=== PATIENT | male | born 1960 | race Caucasian/White ===

== ENCOUNTER 2022-03-22 14:41 | Outpatient (CLI) | payer BC, SELFPAY | END 2022-03-22 14:42 | disposition home or self-care (01) | PROVIDERS: PCP Family Medicine; Visit Provider Student in an Organized Health Care Education/Training Program | DX: I48.91 Unspecified atrial fibrillation (principal); I51.7 Cardiomegaly | CPT/HCPCS: 93306 ==

== ENCOUNTER 2022-04-09 05:09 | Observation (INO) | payer BC, SELFPAY ==
[2022-04-09] VITALS (18 sets, daily range): BP systolic 99–140; BP diastolic 69–119; PULSE 67–92; RESP 16–20; TEMP 36.6–36.9; O2SAT 88–98; BMI 28.1
--- NOTE | 2022-04-09 05:38 | CRLHL7_ITS ---
For Patients: As a result of the Century Cures Act, medical imaging exams and procedure reports are released immediately into your electronic medical record. You may view this report before your referring provider. If you have questions, please contact your health care provider. HISTORY: Shortness of breath. TECHNIQUE: Two views of the chest. COMPARISON: No prior full chest radiographs. FINDINGS: There are interstitial opacities bilaterally likely reflecting interstitial edema. There is no lung consolidation. No pneumothorax. At most a trace amount of pleural fluid posteriorly. Heart size is within normal limits. Degenerative changes of the spine. IMPRESSION: Pulmonary interstitial opacities likely reflecting pulmonary interstitial edema. Interstitial infiltrates would reflect a secondary consideration. Dictated by Sharif Munoz MD @ 04/09/2022 7:07:05 AM Dictated by: Sharif Munoz MD @ 04/09/2022 07:07:09 (Electronically Signed)
--- NOTE | 2022-04-09 05:51 | ED.GENADULT ---
HPI - General Adult General Chief complaint: Shortness of Breath/Dyspnea Stated complaint: Breathing not good after abalation Time Seen by Provider: 04/09/22 05:19 Source: patient and family Mode of arrival: ambulatory Limitations: no limitations History of Present Illness HPI narrative: 61-year-old male presents to the emergency department with shortness of breath. Had a cardiac ablation procedure 2 days ago at [facility], discharged yesterday with no complication. Has not slept well the last couple of nights but this was his 1st night back at home. He states that at 3:00 a.m. he became more short of breath. It did seem to come on gradually rather than suddenly. He is anticoagulated on Eliquis for a history of AFib. The reason for the ablation was AFib with both a fast and slow mixed picture. Ablation deemed successful by his cardiology team an outpatient followup has been planned for this week. He was given a few new prescriptions including furosemide which he was told to take for swelling. It is written in his discharge instructions to take it daily for 5 days but he reports that he was told he did not need to take it unless he noted swelling. He did take 1 just before coming to the emergency department today. No history of DVT or PE. He does take several antihypertensives which he reports good compliance with. These are also listed on his discharge paperwork. There is a general chest tightness and tenderness that he has had since the procedure but it is not worsened it is not exertional. He says that his shortness of breath is worse if he lies flat, pain is not increased with deep breath. Other than that he says that he is feeling ?gassy and burping a lot? but denies any specific epigastric discomfort. There is no vomiting, no fever, no bloody stools. He reports good compliance with his Eliquis in the month proceeding the ablation. He does have a cough, says that it feels wet but it is nonproductive. That started yesterday. No known ill contacts. No other procedures, trauma or injury recently. Has not tried his albuterol inhaler for his symptoms. Had an echo a month ago that showed EF of 43%, reviewed in records. Mildly enlarged left ventricle noted with mildly reduced global systolic function, normal right ventricle, valves were grossly normal as well. Past medical history notable for AFib, recent cardiac ablation. Hypertension, GERD, asthma. Remote history of colon cancer, status post colectomy and reanastomosis, in remission Medications reviewed from discharge paperwork, updated into EMR. No drug allergies. Socially is a nonsmoker, denies alcohol intake. No pertinent travel. ROS is notable for the cardiac in generalized and respiratory symptoms as above. Otherwise denies times 12 systems. Related Data Home Medications Medication Instructions Recorded Confirmed albuterol sulfate 90 mcg/actuation 2 puff inhalation Q4H PRN 04/09/22 04/09/22 aerosol inhaler amlodipine 5 mg tablet 5 mg PO DAILY 04/09/22 04/09/22 apixaban 5 mg tablet (Eliquis) 5 mg PO BID 04/09/22 04/09/22 beclomethasone dipropionate 80 3 inh inhalation BID 04/09/22 04/09/22 mcg/actuation HFA breath activated aerosol (Qvar RediHaler) chlorthalidone 25 mg tablet 25 mg PO DAILY 04/09/22 04/09/22 furosemide 20 mg tablet 20 mg PO DAILY PRN 04/09/22 04/09/22 lisinopril 40 mg tablet 40 mg PO BID 04/09/22 04/09/22 pantoprazole 40 mg tablet,delayed 40 mg PO DAILY 04/09/22 04/09/22 release potassium chloride 10 mEq 40 meq PO DAILY 04/09/22 04/09/22 tablet,extended release sotalol 80 mg tablet (Sotalol AF) 80 mg PO BID 04/09/22 04/09/22 sucralfate 1 gram tablet 1 g PO TID 04/09/22 04/09/22 Allergies Allergy/AdvReac Type Severity Reaction Status Date / Time No Known Drug Allergies Allergy Verified 04/09/22 05:23 [facility] Medical History A-fib Asthma Colon cancer Hypertension Surgical History History of colectomy History of hernia repair History of tonsillectomy History of vasectomy Social History Smoking Status: Never smoker Do you use any of these nicotine containing products: None Second hand tobacco smoke exposure: No How often do you have a drink containing alcohol: never How often do you have six or more drinks on one occasion: Never AUDIT-C Alcohol total score: 0 Non-prescribed substance use: denies use Exam Const: Vital Signs, click to edit/add: Vital Signs - 24 hr 04/09/22 05:19 04/09/22 05:56 04/09/22 05:56 Temperature 98.1 F Pulse Rate Pulse Rate [Right Pulse Oximeter] 77 Respiratory Rate 20 Blood Pressure Blood Pressure [Ri ght Upper Arm] 132/119 H Pulse Oximetry 91 88 95 Oxygen Delivery Me thod Room Air Nasal Cannula Oxygen Flow Rate 2 04/09/22 05:42 04/09/22 06:02 04/09/22 06:32 Temperature Pulse Rate 75 76 75 Pulse Rate [Right Pulse Oximeter] Respiratory Rate 18 16 16 Blood Pressure 130/90 H 127/96 H 125/85 Blood Pressure [Ri ght Upper Arm] Pulse Oximetry 88 92 92 Oxygen Delivery Me thod Oxygen Flow Rate Documenting provider has reviewed patient's vital signs: yes Common normals: no apparent distress General appearance: cooperative and well kempt HENMT: Common normals: normocephalic, head/scalp atraumatic and external nose normal Head and scalp: normocephalic and atraumatic Face and sinus: normal facial exam Nose: external nose normal Mouth: oral and palatal mucosa normal Throat: posterior oropharynx normal Eye: Common normals: EOMs intact bilaterally and conjunctivae normal Conjunctiva: conjunctiva(e) normal Neck & C-Spine: Common normals: full ROM and no lymphadenopathy Chest: Common normals: inspection of chest normal Resp: Common normals: normal respiratory effort, no retractions and no use of accessory muscles Other: Fine crackles left greater than right base. No wheeze. Cardio: Common normals: regular rate, regular rhythm, S1 normal heart sound, S2 normal heart sound, no murmurs and peripheral pulses 2+ throughout Rate: regular rate Rhythm: regular rhythm Heart sounds: S1 normal and S2 normal Peripheral pulses: pulses 2+ throughout GI: Common normals: Normal to inspection, nondistended, normoactive bowel sounds present, soft to palpation, no hepatosplenomegaly and no masses Palpation: soft and no hepatosplenomegaly Extremity: Other: Trace bilateral edema Neuro: Speech: speech normal Motor exam: strength 5/5 throughout, no tremor noted and no movement abnormalities noted Psych: Appearance: well kempt Attitude: calm and engaged Memory/cognition: memory grossly intact Insight: fair Judgement: judgment good Skin: Common normals: no rashes or lesions noted General skin exam: no rashes or lesions noted Course Vital Signs Vital signs: Initial Vital Signs Respiratory Effort Spontaneous 04/09/22 05:10 Respiratory Depth Normal 04/09/22 05:10 Respiratory Pattern 04/09/22 05:10 Vital Signs Temperature 98.1 F 04/09/22 05:19 Pulse Rate 77 04/09/22 05:19 Respiratory Rate 20 04/09/22 05:19 Blood Pressure 132/119 H 04/09/22 05:19 Pulse Oximetry 91 04/09/22 05:19 Oxygen Delivery Method 04/09/22 05:19 Temperature 98.1 F 04/09/22 05:19 Pulse Rate 75 04/09/22 06:32 Respiratory Rate 16 04/09/22 06:32 Blood Pressure 125/85 04/09/22 06:32 Pulse Oximetry 92 04/09/22 06:32 Oxygen Delivery Method 04/09/22 05:56 Oxygen Flow Rate 2 04/09/22 05:56 Medical Decision Making MDM Narrative Medical decision making narrative: Brief bedside ultrasound used to confirm bilateral sliding lungs sign, no pneumothorax. Cardiac windows were fairly difficult to see but there is certainly no over collapse of the right ventricle and I do not appreciate any tamponade. I can see good contractility in the left ventricle with no obvious glaring wall motion abnormalities and EF appears grossly preserved. Again, this is a very limited look. Differential diagnosis including pneumothorax, respiratory infections, cardiac tamponade or physical injury to the heart, arrhythmias, PE. Clot is unlikely as he is fully anticoagulated with no lapse in coverage. Was likely diagnosis is going to be pulmonary edema. Awaiting chest x-ray and labs. I do fully expect his troponin to be elevated because of the procedure. I am only drawing them in case we need to trend them as they should trend down in the setting of the procedure. Awaiting chest x-ray, will likely administer IV furosemide. Update: Chest x-ray does confirm pulmonary edema. No pneumothorax or focal consolidation per my interpretation. Awaiting formal radiology report. Will update record if there are changes. Will administer 40 mg of IV Lasix x1, 20 of potassium. I spoke with Dr. Concepcion, hospitalist. He accepts admission for hyponatremia and pulmonary edema. Medical Records Medical records reviewed: Yes I reviewed the patient's medical records Lab Data Lab results reviewed: Yes I reviewed the patient's lab results Lab results narrative: Profound hyponatremia. Elevated troponins are likely secondary to procedure not ischemia. These were only drawn as a means to track troponins if there are unexpected clinical changes. Labs: Lab Results 04/09/22 04/09/22 04/09/22 Range/Units 05:40 05:40 05:59 WBC 12.99 H (4.50-11.00) K/uL RBC 4.70 (4.30-5.90) m/uL Hgb 14.8 (13.5-17.5) gm/dL Hct 41.9 (37.0-53.0) % MCV 89 (80-100) fL MCH 32 (26-34) pg MCHC 35 (32-36) gm/dL RDW Coeff of Sundar 11.9 (11.5-15.5) % Plt Count 130 L (140-440) K/uL Neut % (Auto) 84.5 H (42.0-72.0) % Lymph % (Auto) 7.0 L (20-44) % [place] % (Auto) 7.0 (0.0-11.0) % Eos % (Auto) 0.1 (0.0-7.0) % Baso % (Auto) 0.1 (0.0-3.0) % Neut # (Auto) 11.00 H (1.7-7.0) K/uL Lymph # (Auto) 0.90 (0.90-2.90) K/uL [place] # (Auto) 0.90 (0.00-0.90) K/UL Eos # (Auto) 0.00 (0.00-0.50) K/uL Baso # (Auto) 0.00 (0.00-0.30) K/uL Sodium 123 L* (135-149) mmol/L Potassium 4.1 (3.6-5.1) mmol/L Chloride 93 L (96-114) mmol/L Carbon Dioxide 24 (20-32) mmol/L BUN 17 (7-30) mg/dL Creatinine 0.8 (0.5-1.5) mg/dL Estimated Creat Clear 92.72 Estimated GFR 101 ml/min Glucose 123 H (60-115) mg/dL Calcium 9.1 (8.4-10.6) mg/dL Total Bilirubin 2.2 H (0.1-1.5) mg/dL AST 43 H (12-35) U/L ALT 47 (4-50) U/L Alkaline Phosphatase 38 L (40-150) U/L Troponin I 1.30 H* (0.01-0.04) ng/mL C-Reactive Protein 4.5 H (0.5-1.0) mg/dL NT-Pro-B Natriuret Pep 704 pg/mL Total Protein 6.7 (6.0-8.3) g/dL Albumin 4.3 (3.3-5.0) g/dL Procalcitonin 0.07 (<0.50) ng/mL SARS-CoV-2 (PCR) Negative SARS-CoV-2 (Negative) Influenza Type A (PCR) Negative PCR FLU A (Negative) Influenza Type B (PCR) Negative PCR FLU B (Negative) RSV (PCR) Negative PCR RSV (Negative) Imaging Data Chest x-ray: My impression: Per my interpretation, pulmonary edema. Radiologist's impression: IMPRESSION: Pulmonary interstitial opacities likely reflecting pulmonary interstitial edema. Interstitial infiltrates would reflect a secondary consideration. ECG Data Attestation: I personally reviewed and interpreted this ECG as follows: Prior ECG tracings: available for review Interpretation: Normal sinus rhythm with no significant ST or T-wave abnormalities few PACs. Normal axis. Good R-wave progression. Discharge Plan Discharge Prescriptions: No Action albuterol sulfate 90 mcg/actuation HFA aerosol inhaler 2 puff INHALATION Q4H PRN Label Comments: INHALE 2 PUFFS BY MOUTH EVERY 4 HOURS IF NEEDED FOR WHEEZING 1ST CHOICE. amlodipine 5 mg tablet 5 mg PO DAILY Label Comments: TAKE 1 TABLET BY MOUTH EVERY DAY Eliquis 5 mg tablet 5 mg PO BID Label Comments: TAKE 1 TABLET BY MOUTH TWO TIMES DAILY. Qvar RediHaler 80 mcg/actuation HFA aerosol breath activated 3 inh INHALATION BID Label Comments: INHALE 3 PUFFS BY MOUTH IN THE MORNING AND 3 PUFFS IN THE EVENING. DOESN'T NEED A SPACER OR SHAKING chlorthalidone 25 mg tablet 25 mg PO DAILY furosemide 20 mg tablet 20 mg PO DAILY PRN lisinopril 40 mg tablet 40 mg PO BID Label Comments: TAKE 1/2 TABLET BY MOUTH IN THE MORNING AND 1/2 TABLET IN THE EVENING. pantoprazole 40 mg tablet,delayed release (DR/EC) 40 mg PO DAILY sotalol [Sotalol AF] 80 mg tablet 80 mg PO BID potassium chloride 10 mEq tablet extended release 40 meq PO DAILY Label Comments: TAKE 4 TABLETS (40 MEQ) BY MOUTH ONCE DAILY. IN THE EVENING. WAIT UNTIL THEY CALL FOR THIS. sucralfate 1 gram tablet 1 g PO TID Label Comments: TAKE 1 TABLET (1 G) BY MOUTH THREE TIMES DAILY BEFORE MEALS. Follow Up/Referrals: Ismael Coronel MD [Primary Care Provider] -
[2022-04-09 06:06] LABS: Basophils Percent Auto 0.1 % (0.0-3.0); Eosinophils Percent Auto 0.1 % (0.0-7.0); Hematocrit 41.9 % (37.0-53.0); Hemoglobin* 14.8 gm/dL (13.5-17.5); Immature Granulocytes Pct Auto 1.3 %; Mean Corpuscular HGB Conc 35 gm/dL (32-36); Mean Corpuscular Hemoglobin 32 pg (26-34); Mean Corpuscular Volume 89 fL (80-100); Neutrophils Percent Auto 84.5 % (42.0-72.0); Platelet Count* 130 K/uL (140-440); RDW Coefficient of Variation % 11.9 % (11.5-15.5); White Blood Count* 12.99 K/uL (4.50-11.00)
[2022-04-09 06:10] LABS: Albumin* 4.3 g/dL (3.3-5.0); Chloride* 93 mmol/L (96-114)
[2022-04-09 06:11] LABS: Potassium* 4.1 mmol/L (3.6-5.1)
[2022-04-09 06:13] LABS: Creatinine* 0.8 mg/dL (0.5-1.5); Est. Creatinine Clearance* 92.72; Estimated Glomerular Filt Rate 101 ml/min
[2022-04-09 06:14] LABS: Alanine Aminotransferase* 47 U/L (4-50); Alkaline Phosphatase* 38 U/L (40-150); Aspartate Amino Transferase* 43 U/L (12-35); Bilirubin Total* 2.2 mg/dL (0.1-1.5); Blood Urea Nitrogen* 17 mg/dL (7-30); Calcium* 9.1 mg/dL (8.4-10.6); Carbon Dioxide* 24 mmol/L (20-32); Glucose* 123 mg/dL (60-115); Total Protein* 6.7 g/dL (6.0-8.3)
[2022-04-09 06:17] LABS: C Reactive Protein* 4.5 mg/dL (0.5-1.0)
[2022-04-09 06:23] LABS: NT Pro B Type NatriureticPept* 704 pg/mL
[2022-04-09 06:25] LABS: PCR FLU A Negative PCR FLU A (Negative); PCR FLU B Negative PCR FLU B (Negative); PCR RSV Negative PCR RSV (Negative)
[2022-04-09 06:26] LABS: SARS PCR* Negative SARS-CoV-2 (Negative)
[2022-04-09 06:31] LABS: Procalcitonin* 0.07 ng/mL (<0.50)
[2022-04-09 06:40] LABS: Sodium* 123 mmol/L (135-149)
--- NOTE | 2022-04-09 06:40 | ED.NURSE ---
MD Blanca updated on NA 123
[2022-04-09] MEDS: FUROSEMIDE 10 MG/ML inj 40 MG IVP ×2 (07:03→17:11)
[2022-04-09] MEDS: POTASSIUM CHLORIDE 10 MEQ CAPSULE ER 20 MEQ PO (07:03)
[2022-04-09 08:12] LABS: Slide Review Reflex No
--- NOTE | 2022-04-09 08:31 | PC.NURSE ---
given report to Donna Cannon on M/S and plan to admit to room 279 via cart with school lunch monitor on. voided out 1100 cc of dilute yellow urine.
--- NOTE | 2022-04-09 09:14 | ED.NURSE ---
voided out 875 cc into the urinal for a total of 1975 cc
--- NOTE | 2022-04-09 09:44 | PM.IMHP1 ---
Hospitalist- H&P: HPI History of Present Illness Date Seen: 04/09/22 Chief complaint: Breathing not good after abalation Narrative: Omar Nava is a 61 year old male admitted through the emergency department with onset of dyspnea following cardiac ablation at [facility] 2 days ago. Patient reported generally doing well prior to this other than his atrial fibrillation. He is known to have heart failure with reduced ejection fraction. It is suspected that the heart failure may be due to his atrial fibrillation. He had evaluation for cardiac ischemia with a CT coronary angiogram on April 06 showing moderate nonobstructive coronary disease. On March 22 he had an echocardiogram showing ejection fraction of 43% with mildly reduced global systolic function. No significant valvular disease. Right ventricular cavity and function were normal. He reports that his weight was 215 lb prior to his ablation. When he got home yesterday his weight was 225 lb. He noted swelling in his ankles. Last night he had dyspnea and cough when he was in bed trying to sleep. He has not had a fever or cold symptoms. No chest pain. His sodium from 2 days ago was 131. Review of Systems Narrative: Complete review of systems is unremarkable except as noted above PFSH PFS Medical History (Updated 04/09/22 @ 10:00 by Mateo Concepcion MD) A-fib Abnormal echocardiogram Asthma Colon cancer Coronary atherosclerosis Hypertension Surgical History (Updated 04/09/22 @ 09:50 by Mateo Concepcion MD) H/O cardiac radiofrequency ablation History of colectomy History of hernia repair History of tonsillectomy History of vasectomy Family History (Updated 04/09/22 @ 09:54 by Mateo Concepcion MD) Brother Heart disease Atrial fibrillation Diabetes Parkinsons disease Mother Heart disease Sister Atrial fibrillation Diabetes Father Diabetes Stroke Social History (Updated 04/09/22 @ 09:55 by Mateo Concepcion MD) Narrative: Patient lives with his . He does office work in finance. He is here with his . 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 Code status is full. He does not smoke. He drinks 2109 alcoholic beverages per week. He is considering cutting back on his alcohol consumption. Smoking Status: Never smoker Do you use any of these nicotine containing products: None Second hand tobacco smoke exposure: No How often do you have a drink containing alcohol: never How often do you have six or more drinks on one occasion: Never AUDIT-C Alcohol total score: 0 Non-prescribed substance use: denies use Meds Home Medications and Allergies Home Medications Medication Instructions Recorded Confirmed Type albuterol sulfate 90 mcg/actuation 2 puff inhalation Q4H PRN 04/09/22 04/09/22 History aerosol inhaler amlodipine 5 mg tablet 5 mg PO DAILY 04/09/22 04/09/22 History apixaban 5 mg tablet (Eliquis) 5 mg PO BID 04/09/22 04/09/22 History beclomethasone dipropionate 80 3 inh inhalation BID 04/09/22 04/09/22 History mcg/actuation HFA breath activated aerosol (Qvar RediHaler) chlorthalidone 25 mg tablet 25 mg PO DAILY 04/09/22 04/09/22 History furosemide 20 mg tablet 20 mg PO DAILY PRN 04/09/22 04/09/22 History lisinopril 40 mg tablet 20 mg PO BID 04/09/22 04/09/22 History pantoprazole 40 mg tablet,delayed 40 mg PO DAILY 04/09/22 04/09/22 History release potassium chloride 10 mEq 40 meq PO HS 04/09/22 04/09/22 History tablet,extended release sotalol 80 mg tablet (Sotalol AF) 80 mg PO BID 04/09/22 04/09/22 History sucralfate 1 gram tablet 1 g PO TID 04/09/22 04/09/22 History Allergies Allergy/AdvReac Type Severity Reaction Status Date / Time No Known Drug Allergies Allergy Verified 04/09/22 05:23 Exam Narrative: Exam Narrative: He is alert and appears in no distress. Speech is normal. He gives his own history. Eyes normal. Oropharynx with small airway. Otherwise normal. Neck is supple without mass or adenopathy or tenderness. Respirations with a few bibasilar crackles. No wheezing. Cardiovascular: S1, S2, regular rate and rhythm with frequent premature beats. No gallop or rub. Abdomen: Soft nontender. Bowel sounds present. Extremities with 1+ edema in the left and trace edema on the right. He moves all 4 extremities well. Const: Vital Signs, click to edit/add: Vital Signs - 24 hr 04/09/22 05:19 04/09/22 05:56 04/09/22 05:56 Temperature 98.1 F Pulse Rate Pulse Rate [Right Pulse Oximeter] 77 Respiratory Rate 20 Blood Pressure Blood Pressure [Ri ght Upper Arm] 132/119 H Pulse Oximetry 91 88 95 Oxygen Delivery Me thod Room Air Nasal Cannula Oxygen Flow Rate 2 04/09/22 05:42 04/09/22 06:02 04/09/22 06:32 Temperature Pulse Rate 75 76 75 Pulse Rate [Right Pulse Oximeter] Respiratory Rate 18 16 16 Blood Pressure 130/90 H 127/96 H 125/85 Blood Pressure [Ri ght Upper Arm] Pulse Oximetry 88 92 92 Oxygen Delivery Me thod Oxygen Flow Rate 04/09/22 07:30 04/09/22 07:32 04/09/22 08:00 Temperature Pulse Rate 87 89 86 Pulse Rate [Right Pulse Oximeter] Respiratory Rate Blood Pressure 126/90 H Blood Pressure [Ri ght Upper Arm] Pulse Oximetry 91 91 92 Oxygen Delivery Me thod Oxygen Flow Rate 04/09/22 08:02 04/09/22 08:32 04/09/22 08:33 Temperature Pulse Rate 81 89 85 Pulse Rate [Right Pulse Oximeter] Respiratory Rate Blood Pressure 130/89 120/79 Blood Pressure [Ri ght Upper Arm] Pulse Oximetry 94 89 94 Oxygen Delivery Me thod Oxygen Flow Rate Documenting provider has reviewed patient's vital signs: yes Hospitalist - H&P: Result Labs Labs: Short CBC 04/09/22 Range/Units 05:40 WBC 12.99 H (4.50-11.00) K/uL Hgb 14.8 (13.5-17.5) gm/dL Hct 41.9 (37.0-53.0) % Plt Count 130 L (140-440) K/uL BMP 04/09/22 05:40 Sodium 123 L* Potassium 4.1 Chloride 93 L Carbon Dioxide 24 BUN 17 Creatinine 0.8 Glucose 123 H Calcium 9.1 Cardiac Enzymes 04/09/22 Range/Units 05:40 Troponin I 1.30 H* (0.01-0.04) ng/mL Liver Function 04/09/22 Range/Units 05:40 Total Bilirubin 2.2 H (0.1-1.5) mg/dL AST 43 H (12-35) U/L ALT 47 (4-50) U/L Alkaline Phosphatase 38 L (40-150) U/L Albumin 4.3 (3.3-5.0) g/dL Assessment and Plan Assessment and plan (1) Pulmonary edema: Problem comment: Based on clinical evaluation and chest x-ray patient appears to have acute pulmonary edema. Will diurese with furosemide. Clinically already improved after furosemide in the emergency department Status: Acute (2) Acute hyponatremia: Problem comment: Acute hyponatremia. Sodium was 131 2 days ago prior to ablation. Will monitor sodium as he gets diuresed from his heart failure/pulmonary edema. Hold chlorthalidone. For now will use furosemide for volume control instead of chlorthalidone. Status: Acute (3) Elevated troponin: Problem comment: Likely due to ablation from 2 days ago. Status: Acute Plan Admit to the hospital for treatment of pulmonary edema and hyponatremia. Anticipate 1 day stay in the hospital for management of these conditions with probable discharge to home tomorrow if clinically improved. Total time spent today is 60 minutes, 40 minutes in coordination of care and discussing with patient, and other providers ongoing evaluation management of pulmonary edema and hyponatremia
--- NOTE | 2022-04-09 09:48 | RESP.RT ---
Patient up in bed resting comfortably, RR 16/minute, breathing regular/easy, SaO2 94% on 2 Lpm NC. Patient has Home MDI of Albuterol, and Qvar.
[2022-04-09] MEDS: OMEPRAZOLE 20 MG CAPSULE DR 40 MG PO (10:12)
[2022-04-09] MEDS: APIXABAN 5 MG TABLET PO ×2 (10:13→20:44)
[2022-04-09] MEDS: AMLODIPINE 5 MG TABLET PO (10:13)
[2022-04-09] MEDS: SOTALOL HCL 80 MG TABLET PO ×2 (10:14→20:45)
[2022-04-09] MEDS: SUCRALFATE 1 GM TABLET PO ×3 (10:15→20:46)
[2022-04-09 15:33] LABS: Chloride* 91 mmol/L (96-114); Potassium* 3.3 mmol/L (3.6-5.1); Sodium* 125 mmol/L (135-149)
[2022-04-09 15:36] LABS: Carbon Dioxide* 26 mmol/L (20-32); Creatinine* 0.7 mg/dL (0.5-1.5); Est. Creatinine Clearance* 85.14; Estimated Glomerular Filt Rate 105 ml/min
[2022-04-09 15:37] LABS: Blood Urea Nitrogen* 15 mg/dL (7-30); Calcium* 8.8 mg/dL (8.4-10.6); Glucose* 103 mg/dL (60-115)
[2022-04-09] MEDS: POTASSIUM BICARB 25 MEQ EFFERVESCENT TAB 50 MEQ PO (17:07)
--- NOTE | 2022-04-09 18:49 | PC.NURSE ---
Patient admitted to the floor around 0930. Moving independently in the room. Urinating frequently with large amount of clear, yellow urine. Pt heart rate noticed to be in the 30's-40's while napping. Dr. Concepcion notified and order for EKG obtained. EKG read HR in the 70's with NSR and prolonged QT. Sinus arrhythmia is seen later on in the shift. Pt explains that he feels much better and is feels less SOB.
[2022-04-09] MEDS: SODIUM CHLORIDE 0.9 % (FLUSH) 10 ML SYRINGE 5 ML IVF (20:45)
[2022-04-10 04:41] VITALS: BP 119/79; PULSE 68; RESP 16; TEMP 36.8; O2SAT 95
--- NOTE | 2022-04-10 04:48 | PC.NURSE ---
[id number]: Patient pleasant and cooperative. Independent in room. Denies pain and SOB. Verbalizes feeling much better and it being easier to breath. HR mainly in the 60-70's with occasional brief drops into the 40's.
[2022-04-10 07:00] VITALS: BP 118/85; PULSE 78; RESP 16; TEMP 36.8; O2SAT 93
[2022-04-10 07:16] LABS: Basophils Absolute Auto 0.03 K/uL (0.00-0.30); Basophils Percent Auto 0.4 % (0.0-3.0); Eosinophils Absolute Auto 0.07 K/uL (0.00-0.50); Eosinophils Percent Auto 0.8 % (0.0-7.0); Hematocrit 38.9 % (37.0-53.0); Hemoglobin* 13.8 gm/dL (13.5-17.5); Immature Granulocytes Abs Auto 0.01 K/uL (0.00-0.30); Immature Granulocytes Pct Auto 0.1 %; Mean Corpuscular HGB Conc 36 gm/dL (32-36); Mean Corpuscular Hemoglobin 32 pg (26-34); Mean Corpuscular Volume 89 fL (80-100); Neutrophils Percent Auto 75.7 % (42.0-72.0); Platelet Count* 109 K/uL (140-440); Red Blood Count 4.36 m/uL (4.30-5.90); White Blood Count* 8.54 K/uL (4.50-11.00)
[2022-04-10 07:21] LABS: Slide Review Reflex No
[2022-04-10 07:33] LABS: Chloride* 92 mmol/L (96-114); Sodium* 128 mmol/L (135-149)
[2022-04-10 07:36] LABS: Blood Urea Nitrogen* 16 mg/dL (7-30); Carbon Dioxide* 29 mmol/L (20-32); Creatinine* 0.8 mg/dL (0.5-1.5); Est. Creatinine Clearance* 85.14; Estimated Glomerular Filt Rate 101 ml/min; Potassium* 3.2 mmol/L (3.6-5.1)
[2022-04-10 07:37] LABS: Calcium* 8.4 mg/dL (8.4-10.6); Glucose* 101 mg/dL (60-115); Magnesium* 1.9 mg/dL (1.5-2.6)
[2022-04-10] MEDS: OMEPRAZOLE 20 MG CAPSULE DR 40 MG PO (07:59)
[2022-04-10] MEDS: FUROSEMIDE 40 MG TABLET PO (08:00)
[2022-04-10 08:02] LABS: Troponin I* 0.72 ng/mL (0.01-0.04)
[2022-04-10] MEDS: AMLODIPINE 5 MG TABLET PO (09:11)
[2022-04-10] MEDS: POTASSIUM BICARB 25 MEQ EFFERVESCENT TAB 50 MEQ PO (09:11)
[2022-04-10] MEDS: APIXABAN 5 MG TABLET PO (09:11)
[2022-04-10] MEDS: SUCRALFATE 1 GM TABLET PO (09:12)
[2022-04-10] MEDS: SOTALOL HCL 80 MG TABLET PO (09:12)
[2022-04-10] MEDS: POTASSIUM CHLORIDE 10 MEQ CAPSULE ER 20 MEQ PO (09:15)
--- NOTE | 2022-04-10 10:03 | PM.DS1 ---
DS: Providers Provider Date Seen: 04/10/22 Date of admission: 04/09/22 08:05 Primary care physician: Ismael Coronel MD Admitting Clinician: Mateo Concepcion MD Attending Physician on discharge: Mateo Concepcion MD Date of Discharge: 04/10/22 DS: Diagnosis Discharge Diagnosis (1) Pulmonary edema: Status: Acute Problem details: Based on clinical evaluation and chest x-ray patient appears to have acute pulmonary edema. Hypoxia, edema and dyspnea resolved with furosemide treatment. Close outpatient followup to monitor fluid status, respiratory status, diuretic and potassium dose. (2) Acute hyponatremia: Status: Acute Problem details: Sodium was 131 prior to ablation. Sodium is 128 today. Chlorthalidone has been held. Furosemide will be continued. (3) A-fib: Status: Acute Problem details: Persistent AFib treated with ablation 04/07/2022 at [facility]. In sinus rhythm during the hospital stay (4) Coronary atherosclerosis: Status: Acute Problem details: Nonobstructive coronary disease seen on coronary CT angiogram 04/06/2022 (5) Elevated troponin: Status: Acute Problem details: Likely due to ablation from 2 days ago. Trending down. (6) Abnormal echocardiogram: Status: Acute Problem details: Echocardiogram on March 22 2022 showed reduced left ventricular ejection fraction of 43%. No valvular disease (7) Hypokalemia: Status: Acute Problem details: Continues to have low potassium related to diuresis. Continue to adjust dose and monitor potassium level as outpatient DS: Summary Hospital Course Hospital Course: 61-year-old male admitted to the hospital 1 day after discharge from [facility] following ablation for persistent atrial fibrillation. Patient had noted a 10 lb weight gain, edema, dyspnea and orthopnea. At the time of admission he was felt to have pulmonary edema. He had vigorous diuresis with a 14 lb weight loss during his hospital stay. Resolution of the edema and hypoxia and dyspnea. Also noted the time of admission was a sodium of 123. Prior to his ablation, 3 days ago, his sodium was 131. Sodium is recovered to 128. His chlorthalidone has been discontinued and replaced with furosemide. Status at Discharge Functional status at discharge: independent ambulation Overall status at discharge: patient is back to baseline Time Spent with Patient Time attestation: Total time spent providing and/or coordinating discharge services: Time spent: Greater than 30 minutes Exam Narrative: Exam Narrative: He is alert and appears in no distress. Respirations are clear to auscultation. Cardiovascular: S1, S2, regular rate and rhythm. Abdomen is soft without tenderness or mass. Extremities without edema. Const: Vital Signs, click to edit/add: Vital Signs - 24 hr 04/09/22 11:20 04/09/22 11:20 04/09/22 15:00 Temperature 97.8 F 98 F Pulse Rate Pulse Rate [Pulse Oximeter] 92 73 Respiratory Rate 18 18 18 Blood Pressure [Le ft Arm] 140/95 H 115/79 Pulse Oximetry 96 96 95 Oxygen Delivery Me thod Room Air Room Air Room Air Oxygen Flow Rate 2 04/09/22 15:00 04/09/22 20:10 04/09/22 23:31 Temperature 98.4 F 98.0 F Pulse Rate Pulse Rate [Pulse Oximeter] 73 75 75 Respiratory Rate 18 16 16 Blood Pressure [Le ft Arm] 99/69 114/79 Pulse Oximetry 94 98 Oxygen Delivery Me thod Room Air Room Air Oxygen Flow Rate 04/09/22 23:00 04/10/22 04:41 04/10/22 07:00 Temperature 98.2 F Pulse Rate 67 Pulse Rate [Pulse Oximeter] 68 78 Respiratory Rate 16 16 Blood Pressure [Le ft Arm] 119/79 Pulse Oximetry 95 Oxygen Delivery Me thod Room Air Oxygen Flow Rate 04/10/22 07:00 Temperature 98.3 F Pulse Rate Pulse Rate [Pulse Oximeter] 78 Respiratory Rate 16 Blood Pressure [Le ft Arm] 118/85 Pulse Oximetry 93 Oxygen Delivery Me thod Room Air Oxygen Flow Rate Documenting provider has reviewed patient's vital signs: yes DS: Data Data Completed and Pending Labs on day of discharge: Labs from last 24 hours 04/10/22 04/10/22 04/09/22 06:26 06:26 14:56 WBC 8.54 RBC 4.36 Hgb 13.8 Hct 38.9 MCV 89 MCH 32 MCHC 36 RDW Coeff of Sundar 12.0 Plt Count 109 L Neut % (Auto) 75.7 H Lymph % (Auto) 13.0 L [place] % (Auto) 10.0 Eos % (Auto) 0.8 Baso % (Auto) 0.4 Neut # (Auto) 6.50 Lymph # (Auto) 1.10 [place] # (Auto) 0.90 Eos # (Auto) 0.07 Baso # (Auto) 0.03 Sodium 128 L 125 L Potassium 3.2 L 3.3 L Chloride 92 L 91 L Carbon Dioxide 29 26 BUN 16 15 Creatinine 0.8 0.7 Estimated Creat Clear 85.14 85.14 Estimated GFR 101 105 Glucose 101 103 Calcium 8.4 8.8 Magnesium 1.9 Troponin I 0.72 H* Discharge Plan Discharge Disposition: Home, Self-Care Date of Admission: 04/09/22 08:05 Attending Provider on Discharge: Mateo Concepcion Primary Care Provider: Ismael Coronel Condition: Improved Anticipated Discharge Date/Time: 04/10/22 08:25 Discharge Medications: New furosemide 40 mg Tablet 40 mg PO DAILY@0800 Qty: 30 0RF potassium chloride 10 mEq capsule, extended release 30 meq PO BID Qty: 180 0RF Continued albuterol sulfate 90 mcg/actuation HFA aerosol inhaler 2 puff INHALATION Q4H PRN Label Comments: INHALE 2 PUFFS BY MOUTH EVERY 4 HOURS IF NEEDED FOR WHEEZING 1ST CHOICE. amlodipine 5 mg tablet 5 mg PO DAILY Label Comments: TAKE 1 TABLET BY MOUTH EVERY DAY Eliquis 5 mg tablet 5 mg PO BID Label Comments: TAKE 1 TABLET BY MOUTH TWO TIMES DAILY. Qvar RediHaler 80 mcg/actuation HFA aerosol breath activated 3 inh INHALATION BID Label Comments: INHALE 3 PUFFS BY MOUTH IN THE MORNING AND 3 PUFFS IN THE EVENING. DOESN'T NEED A SPACER OR SHAKING lisinopril 40 mg tablet 20 mg PO BID Label Comments: TAKE 1/2 TABLET BY MOUTH IN THE MORNING AND 1/2 TABLET IN THE EVENING. pantoprazole 40 mg tablet,delayed release (DR/EC) 40 mg PO DAILY sotalol [Sotalol AF] 80 mg tablet 80 mg PO BID sucralfate 1 gram tablet 1 g PO TID Label Comments: TAKE 1 TABLET (1 G) BY MOUTH THREE TIMES DAILY BEFORE MEALS. Discontinued chlorthalidone 25 mg tablet 25 mg PO DAILY furosemide 20 mg tablet 20 mg PO DAILY PRN potassium chloride 10 mEq tablet extended release 40 meq PO HS Label Comments: TAKE 4 TABLETS (40 MEQ) BY MOUTH ONCE DAILY. IN THE EVENING. WAIT UNTIL THEY CALL FOR THIS. Discharge Orders: Discharge Order (Routine); Ordered 04/10/22 Ordered By: Mateo Concepcion Patient Education: Furosemide (By mouth) (Lasix), Potassium Supplement (By mouth) (Klor-Con, Klor-Con 10, K-Tab, K-Vescent), Heart Failure (DC), Pulmonary Edema (DC), Hyponatremia (DC) Additional Instructions: Check your weight every day at the same time in the morning. Call your doctor if your weight increases by 2 lb in 1 day or 5 lb in 1 week. Activity Level: No Restrictions Follow Up Appointments: Ismael Coronel MD [Primary Care Provider] - 04/21/22 11:15 am Forms: [employer] Info Instructions Discharge Comments: Lab test at clinic: Basic metabolic panel in the next week.
--- NOTE | 2022-04-10 10:23 | PC.NURSE ---
Discharge: Pt. alert and oriented x4, pleasant and cooperative. Pt. denies chest pain, sob, pain, N/V. Pt. 93% on RA. Pt. tolerating reg diet and ambulates independently in hallway and in room. pt. has non-productive cough, Arrhythmia w/PVT's on tele. Pt. Discharged to home at 1015, accompanied by . Ambulated to car. IV removed intact, discharge instructions given, belongings list signed, pt. verbalized understanding.
== END 2022-04-10 10:15 | disposition home or self-care (01) ==
LOC: ED 05:43 → MEDSURG 08:05
PROVIDERS: Admitting Provider Family Medicine; Emergency Provider Family Medicine; PCP Family Medicine; Visit Provider Family Medicine
DX: J81.0 Acute pulmonary edema (principal); E87.1 Hypo-osmolality and hyponatremia; R77.8 Other specified abnormalities of plasma proteins; I48.19 Other persistent atrial fibrillation; I25.10 Atherosclerotic heart disease of native coronary artery without angina pectoris; R93.1 Abnormal findings on diagnostic imaging of heart and coronary circulation; E87.6 Hypokalemia; Z98.890 Other specified postprocedural states; R06.01 Orthopnea; R09.02 Hypoxemia; Z79.01 Long term (current) use of anticoagulants; Z86.79 Personal history of other diseases of the circulatory system; R05.9 Cough, unspecified; Z85.038 Personal history of other malignant neoplasm of large intestine; K21.9 Gastro-esophageal reflux disease without esophagitis; Z90.49 Acquired absence of other specified parts of digestive tract; Z98.0 Intestinal bypass and anastomosis status; Z98.52 Vasectomy status; I50.20 Unspecified systolic (congestive) heart failure; Z87.09 Personal history of other diseases of the respiratory system; I11.0 Hypertensive heart disease with heart failure; I50.30 Unspecified diastolic (congestive) heart failure
CPT/HCPCS: 36415; 71046; 80048; 80053; 83735; 83880; 84145; 84484; 85025; 86140; 87502; 87631; 87634; 87635; 93005; 94761; 96374; 96376; 99284; 99285; G0378; A9270; J1940